=== PATIENT | female | born 1965 | race Caucasian/White ===

== ENCOUNTER 2017-03-21 10:47 | Emergency (ER) | payer BC ==
[2017-03-21] MEDS ORDERED: Naproxen 500 MG TAB ONE (11:19)
[2017-03-21] MEDS ORDERED: diphenhydrAMINE HCl 25 MG CAP ONE (11:19)
== END 2017-03-21 11:56 | disposition home or self-care (01) ==
LOC: MADERS 10:47
DX: T78.40XA Allergy, unspecified, initial encounter (principal)
CPT/HCPCS: 96372; J1040